=== PATIENT | male | born 1930 | race Caucasian/White ===

== ENCOUNTER 2017-04-07 09:49 | Inpatient (IN) ==
[2017-04-07] MEDS ORDERED: NEUPOGEN SUBQ SCH (11:00)
[2017-04-07] MEDS ORDERED: ZOFRAN PO PRN (11:14)
[2017-04-07] MEDS ORDERED: VANCOMYCIN IV PER PHARMACY MISC SCH (11:15)
[2017-04-07] MEDS ORDERED: MAXIPIME 2 GM/NS 2 GM/100 ML IVPB IV SCH (12:00)
[2017-04-07] MEDS: ASPIRIN PO SCH (13:58)
[2017-04-07] MEDS: PRILOSEC PO SCH (13:58)
[2017-04-07] MEDS: COLACE PO SCH ×2 (13:58→21:08)
[2017-04-07] MEDS: WELLBUTRIN SR PO SCH ×2 (13:58→21:08)
[2017-04-07] MEDS: FOLIC ACID PO SCH ×2 (13:59→21:08)
[2017-04-07] MEDS: NS 1,000 ML IV SCH (13:59)
[2017-04-07] MEDS: HYDROCODONE/APAP 7.5-325/15 ML PO PRN ×2 (14:09→21:07)
--- NOTE | 2017-04-07 14:12 | HISTORY AND PHYSICAL ---
HISTORY OF PRESENT ILLNESS: This is an 86-year-old, who recently got chemotherapy and his mouth is very sore from mucositis. Left leg very irritated which looks like a diffuse cellulitis irritation. PAST MEDICAL HISTORY: CLL with lymphomatous transformation and started chemotherapy; had a course last week. He has had a very stormy course with his chemotherapy by his report. Eventually, chemotherapy was limited by thrombocytopenia. He had very intense cellulitis of the right leg which required skin grafting x2. Over the last 2 years, he has done fairly well. Last year he had a fall and suffered compression fracture L1 and treated conservatively with Miacalcin, ambulation, lumbar brace. Reports that he had fallen twice more and was brought to the hospital. At one point, he struck his head and knocked unconscious. Admitted last here 09/08/2015. He had recovered and was doing better and was started back on some chemotherapy. He presents now with mucositis cellulitis of the left leg and neutropenia. PAST MEDICAL HISTORY: 1. Carotid artery disease undergoing carotid endarterectomy. 2. Atrial fibrillation. Not a candidate for anticoagulant therapy secondary to recurrent thrombocytopenia. 3. Hypertension. 4. Benign prostatic hypertrophy. 5. Prior cerebrovascular accident. 6. Anxiety. 7. Reflux. 8. Hyperlipidemia. 9. Prior hospitalization for pneumonia. 10. Had myelodysplastic syndrome with lymphomatous transformation. ALLERGIES: Allergic to ibuprofen. FAMILY HISTORY: Positive for colon cancer and apparent history of hypertension and diabetes mellitus in the family. Chronic obstructive pulmonary disease in parents. SOCIAL HISTORY: He is retired. Lives with elderly , who is suffering from dementia. Nonsmoker. Does not use ethanol. REVIEW OF SYSTEMS: General: States that he has been eating okay up until his mouth started getting sore. HEENT: Mainly his mouth hurting him. It hurts to swallow, hurts on the roof of his mouth. Respiratory: Unremarkable. Cardiovascular: No chest pain or tachy palpitation. GI/: His bowels have been moving okay. No blood in the stool by his report. Endocrinologic/hematologic: No significant history. Neurologic/musculoskeletal: No focal complaints. Left leg very sore. PHYSICAL EXAMINATION: VITAL SIGNS: Afebrile with temp 98.5 degrees, pulse 100, respirations 18, blood pressure 120/63, O2 saturation 95%. Weight 173 pounds. Height 5 feet 9 inches. O2 saturation 95%. LUNGS: Clear in all lung ash. CARDIOVASCULAR EXAM: Regular rhythm and rate without murmurs. OROPHARYNX: He has petechiae and erythema on the hard and soft palate. The posterior pharynx, lips and gingiva look to be okay. His tongue is unremarkable. NECK: No cervical adenopathy. EXTREMITIES: The left leg has circumferential punctate erythema on the anterior skin, very tender and sore. Right leg unremarkable. This right leg has had skin graft in the past. Apparently had cellulitis with this a couple of years ago in the right leg. ASSESSMENT AND PLAN: 1. Mucositis neutropenia. We will put on antibiotics and we will get Magic mouthwash and try swish and swallow. Treated for his cellulitis to cover gram-positive organisms, but also cover gram-negative for the same neutropenia. 2. 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 3. Peripheral vascular disease. Has undergone carotid endarterectomy. 4. History of atrial fibrillation, not a candidate for anticoagulant. Appears to have controlled rate. 5. Recurrent thrombocytopenia, aware. 6. History of hypertension. 7. Benign prostatic hypertrophy. 8. Prior cerebrovascular accident. 9. He has had gastroesophageal reflux. cc: Cooper Espinoza MD
[2017-04-07] MEDS ORDERED: VANCOMYCIN 2,000 MG in NS 500 ML IV ONE (14:30)
[2017-04-07] MEDS: MERREM 1 GM in NS 50 ML IV SCH ×2 (14:40→21:08)
--- NOTE | 2017-04-07 14:46 | CONSULTATION ---
DATE OF CONSULTATION: 04/07/2017 CONCLUSION: The patient is admitted to the hospital with cellulitis of the left leg. He has pancytopenia. The patient also has oral mucositis. I looked in the computer for some prior blood cultures and 1 drawn a day ago is growing gram positive cocci. The patient has oral mucositis. RECOMMENDATIONS: I have discontinued cefepime and have placed the patient on meropenem and I agree with adding vancomycin. I have also ordered that a culture be taken from the patient's left leg. For the patient's oral mucositis, I have ordered Magic mouthwash 4 times a day. There was only 1 blood culture growing gram positive cocci that I found. I think it would be reasonable to wait before taking out the patient's Port-A-Cath to see exactly what type a Staph it is. If it is it if it is only a coag-negative Staph and it is only in 1 blood culture, I still would treated with vancomycin which the patient is receiving but I would not take out the Port-A- Cath at this time. I have ordered Magic Mouthwash. DISCUSSION: The patient is admitted to the hospital with left leg infection. It is erythematous and swollen. He did not injure it. Patient also has pancytopenia. He says that in the past 3 days he has not passed any stool. He does not have an appetite. He also says that his mouth has been very sore. PAST MEDICAL HISTORY/REVIEW OF SYSTEMS: Eyes and Ears: Denies difficulty hearing or seeing. Neck: No meningismus. Respiratory: No cough or shortness of breath. Cardiac: No chest pain or palpitations. GI: No nausea, vomiting, or vomiting. As mentioned above, patient has not passed a stool in 3 days. Genitourinary: No dysuria or flank pain. Endocrine : Patient is not diabetic and he does not have any thyroid disease. Bones, joints, muscles: He is not complaining of any swelling of his joints or myalgias. Neurologic: No seizures. No motor or sensory loss. Integument: No rash PREVIOUS HOSPITALIZATIONS AND OPERATIONS: He has had bilateral carpal tunnel surgery. He has had knee surgery, carotid end arterectomy, laminectomy. Hernia repair x3, appendectomy, cholecystectomy. Placement of a Port-A-Cath. MEDICAL DISEASES: Positive for hypertension, stroke, and lymphoma. Hyperlipidemia and gastroesophageal reflux disease. Infectious Disease History: Negative for pneumonia and UTI. FAMILY HISTORY: Positive for hypertension and cancer. [place]IAL HISTORY[place] . He does not drink alcoholic beverages, smoke cigarettes, or abuse drugs. There are no pets at home. ALLERGIES: Advil. HOME MEDICINES: Include Lasix, folic acid, Avodart, Colace, Wellbutrin, aspirin , Lipitor, Flomax, omeprazole, metoprolol, hydrocodone, and Guar gum. PHYSICAL EXAMINATION: Vital Signs: Temperature is 98.5 degrees, pulse 102, respirations 18 ,blood pressure 120/63. Generally: The patient is an ill-appearing a elderly male. He is in no acute distress at this time. HEENT: Head, eyes, ears, nose and throat: He can hear my spoken words and see near objects. The oral mucosa was erythematous. I did not see any ulcers or white patches at this time. Neck: No meningismus. Thorax: No increased AP diameter to the chest. Lungs: Clear to auscultation. Cardiovascular: Heart rate is regular. Abdomen : Soft and nontender. Extremities: The left leg is swollen and it is erythematous. There are some sloughs of the superficial layer of skin. Neurologic: Patient is alert. He can move his extremities. There is no tremor. His sensation was intact to touch. His memory, as regarding his medical history was decreased. cc: MD ELIAS Fernández
[2017-04-07] MEDS: NON-FORMULARY BULK MED PO SCH ×2 (16:17→21:07)
[2017-04-07] MEDS: GRANIX SUBQ SCH (16:18)
[2017-04-08] MEDS: HYDROCODONE/APAP 7.5-325/15 ML PO PRN ×3 (03:05→22:45)
[2017-04-08] MEDS: PRILOSEC PO SCH (06:06)
[2017-04-08] MEDS: MERREM 1 GM in NS 50 ML IV SCH ×3 (06:06→22:49)
[2017-04-08] MEDS: NS 1,000 ML IV SCH ×2 (06:06→22:49)
[2017-04-08 07:26] LABS: EOS# 0.03 X1000 (0.0-0.7); EOS% 2.8 % (0.0-10.0); HEMATOCRIT 24.2 % (42.0-52.0); HEMOGLOBIN 7.9 g/dL (14.0-18.0); IMM GRAN# 0.08 X1000 (0.0-0.04); IMM GRAN% 7.5 % (0.0-0.5); LYMPH# 0.16 X1000 (1.2-3.4); MANUAL DIFF NEEDED? YES; MCH 30.6 PG (27-31); MCHC 32.6 g/dL (33-37); MCV 93.8 FL (81-99); MONO# 0.18 X1000 (0.11-0.59); MONO% 16.8 % (1.7-9.3); MPV 11.1 FL (7.4-10.4); NEUT% 57.9 % (42.2-75.2); RBC 2.58 XMIL (4.7-6.1)
[2017-04-08 07:29] LABS: PLT 28 X1000 (130-400)
[2017-04-08 07:46] LABS: AGAP 8; ALBUMIN 2.8 g/dL (3.5-5.0); ALKALINE PHOSPHATASE 75 U/L (32-122); BANDS 8 % (0-1); BUN 22 mg/dL (8-22); CHLORIDE 95 mmol/L (98-107); COSMO 269; EOS 4 % (1-10); GOT 16 U/L (10-34); GPT 31 U/L (10-44); HYPOCHROM 2+; LYMPHS 12 % (21-51); MONO 8 % (1-9); POTASSIUM 3.8 mmol/L (3.5-5.1); SODIUM 132 mmol/L (136-145); TCO2 29 mmol/L (25-35); TOTAL BILIRUBIN 1.23 mg/dL (0.20-1.00); TOTAL PROTEIN 4.6 g/dL (6.3-8.3)
[2017-04-08] MEDS: TOPROL XL PO SCH (08:39)
[2017-04-08] MEDS: ASPIRIN PO SCH (08:39)
[2017-04-08] MEDS: FOLIC ACID PO SCH ×2 (08:39→22:48)
[2017-04-08] MEDS: WELLBUTRIN SR PO SCH ×2 (08:39→22:48)
[2017-04-08] MEDS: COLACE PO SCH ×2 (08:40→22:49)
[2017-04-08] MEDS: GRANIX SUBQ SCH (08:40)
[2017-04-08] MEDS: NON-FORMULARY BULK MED PO SCH ×4 (08:40→22:49)
[2017-04-08] MEDS ORDERED: CALCIUM GLUCONATE 4.65 MEQ in NS 50 ML IV ONE (09:00)
--- NOTE | 2017-04-08 13:02 | PROGRESS NOTE ---
DATE: 04/08/2017 CHIEF COMPLAINT: "I am doing terrible." HISTORY OF PRESENT ILLNESS: Mr. Zambrano has had pain overnight related to his mucositis and left lower extremity cellulitis. He is unable to swallow much of anything at this time. Pain is well controlled when he takes his pain medications. PHYSICAL EXAMINATION: Vital Signs: Temperature 97.5 degrees, pulse 101, respiratory rate 22, blood pressure 102/52, O2 saturation is now at 92% on 3 L but dropped down to 79% on room air overnight. General: This is a chronically ill-appearing, elderly, frail, man in moderate distress secondary to pain. Eyes: Sclerae anicteric. Cardiovascular: Regular rate and rhythm. Normal S1, S2. No murmurs, rubs, or gallops. Pulmonary: Lungs clear to auscultation bilaterally without wheezes, rales or rhonchi. GI: Abdomen is soft, nontender, nondistended with normoactive bowel sounds. Extremities: No clubbing or cyanosis. Right lower extremity with 1+ edema. Left lower extremity with ulceration and desquamation and erythema up to the upper 2/3 of the tibia. Neuro: Gait not assessed. The patient is unable to stand secondary to pain. LABORATORY DATA: White count pending but ANC is 620. Hemoglobin 7.9, platelet count 28,000. Calcium 7.0. Total bilirubin 1.23. ASSESSMENT AND PLAN: 1. Angioimmunoblastic lymphoma, stage 3b, status post cycle 1, day 36 of Folotyn 03/31/2017. His treatment has been held since that time due to pancytopenia and declining performance status. Treatment will continue to be held at this time. 2. Mucositis: Continue to use Magic Mouthwash and pain medicine as needed. Patient is on folic acid. 3. Hypocalcemia: I will give him IV calcium today for repletion. Recheck tomorrow. 4. Anemia: His hemoglobin is low at 7.9 today. I will check iron stores, B12, and folic acid, and replete as indicated. 5. Thrombocytopenia related to his underlying disease as well as his treatment. Continue neutropenic precautions. Monitor for fever. Transfused 1. Bleeding is notable. Continue to monitor. 6. Left leg cellulitis: He continues on antibiotics. He had 1 positive blood culture that is being monitored. ID is on board. We will continue to follow along with you and leave further recommendations as indicated. cc: Maria Alejandra Wade MD
--- NOTE | 2017-04-08 14:09 | PROGRESS NOTE ---
DATE: 04/08/2017 SUBJECTIVE: Mr. Zambrano feels about the same. He was able to get a little bit of chicken broth down. Still hurts in his mouth. His left leg is still very uncomfortable. Breathing comfortably. OBJECTIVE: Temperature 97.5 degrees, pulse 100, respirations 22, blood pressure 102/52. LUNGS: Clear to auscultation. CARDIOVASCULAR: Regular rhythm and rate, without murmur or S3. ABDOMEN: Soft. SKIN: Warm and dry. LABORATORY: Hematocrit is 24, platelet count 28,000, white blood cell count 2580. ASSESSMENT AND PLAN: 1. Patient admitted to the hospital with cellulitis left leg, pancytopenia, oral mucositis. Culture data pending at the present time. Patient put on meropenem and adding vancomycin. Discontinued cefepime and placed the patient on meropenem and vancomycin, per Dr. Ochoa. One blood culture grew Gram-positive cocci. Wanted to wait before taking out the Port-A-Cath to see exactly what type of staphylococcus it was. If it is only coagulase-negative staphylococcus and it is only 1 blood culture, continue treatment. 2. Angioimmunoblastic lymphoma, stage IIIB, status post cycle 1 day 36. Folotyn started on 03/31/2017. His treatment has been held since that time because of pancytopenia and declining performance. 3. Hypocalcemia, given some IV calcium for repletion. 4. Thrombocytopenia related to underlying disease. Continue neutropenic precautions. Monitor. Transfuse per Dr. Wade. 3. Left leg cellulitis. Continue topical care. cc: Cooper Espinoza MD
[2017-04-08] MEDS: VANCOMYCIN 1,250 MG in NS 250 ML IV SCH (14:45)
[2017-04-09] MEDS: MERREM 1 GM in NS 50 ML IV SCH ×3 (07:13→21:05)
[2017-04-09] MEDS: PRILOSEC PO SCH (07:14)
[2017-04-09 07:49] LABS: AGAP 5; ALBUMIN 2.7 g/dL (3.5-5.0); ALKALINE PHOSPHATASE 81 U/L (32-122); BUN 16 mg/dL (8-22); CALCIUM 7.5 mg/dL (8.8-10.2); CHLORIDE 100 mmol/L (98-107); COSMO 272; GOT 12 U/L (10-34); GPT 27 U/L (10-44); POTASSIUM 4.1 mmol/L (3.5-5.1); SODIUM 135 mmol/L (136-145); TCO2 30 mmol/L (25-35); TOTAL PROTEIN 4.5 g/dL (6.3-8.3)
[2017-04-09 08:04] LABS: BASO% 0.6 % (0.0-0.8); EOS# 0.05 X1000 (0.0-0.7); EOS% 3.1 % (0.0-10.0); HEMATOCRIT 26.8 % (42.0-52.0); HEMOGLOBIN 8.4 g/dL (14.0-18.0); LYMPH# 0.21 X1000 (1.2-3.4); LYMPH% 13.2 % (20.5-51.1); MANUAL DIFF NEEDED? YES; MCH 30.1 PG (27-31); MCHC 31.3 g/dL (33-37); MCV 96.1 FL (81-99); MONO# 0.37 X1000 (0.11-0.59); MONO% 23.3 % (1.7-9.3); MPV 11.8 FL (7.4-10.4); NEUT% 59.8 % (42.2-75.2); PLT 18 X1000 (130-400); RBC 2.79 XMIL (4.7-6.1)
[2017-04-09 08:32] LABS: FERRITIN 2918 ng/mL (30-400)
[2017-04-09 08:51] LABS: BANDS 14 % (0-1); LYMPHS 12 % (21-51); MONO 18 % (1-9); NRBC 1 % (0-0)
[2017-04-09 08:52] LABS: HYPOCHROM 2+
[2017-04-09] MEDS: NON-FORMULARY BULK MED PO SCH ×4 (09:58→21:05)
[2017-04-09] MEDS: HYDROCODONE/APAP 7.5-325/15 ML PO PRN ×2 (09:59→14:54)
[2017-04-09] MEDS: TOPROL XL PO SCH (10:00)
[2017-04-09] MEDS: WELLBUTRIN SR PO SCH ×2 (10:00→21:05)
[2017-04-09] MEDS: FOLIC ACID PO SCH ×2 (10:00→21:05)
[2017-04-09] MEDS: ASPIRIN PO SCH (10:00)
[2017-04-09] MEDS: COLACE PO SCH ×2 (10:00→21:05)
[2017-04-09] MEDS: GRANIX SUBQ SCH (13:05)
[2017-04-09] MEDS: VANCOMYCIN 1,250 MG in NS 250 ML IV SCH (14:44)
[2017-04-09] MEDS: NS 1,000 ML IV SCH (14:46)
--- NOTE | 2017-04-09 15:00 | PROGRESS NOTE ---
DATE: 04/09/2017 SUBJECTIVE: Mr. Calabrese mouth still hurts, but better. He is able to get a little bit of liquids down. I think he is feeling better overall. OBJECTIVE: Vital signs: Remains afebrile, temperature 97.8 degrees, pulse 89, respirations 17, blood pressure 134/64. HEENT: Pupils are equal, round. Lungs: Are clear in all lung ash. Cardiovascular: Regular rhythm and rate without murmur or S3. Abdomen: Soft. Skin: Is warm and dry. : Urine output is 965 mL. LABORATORY: White count 1590, hematocrit has come up to 26, platelet count 18,000. Chemistries reviewed, sodium 135, potassium 4.1, chloride 100, bicarb 30, BUN 16, creatinine 0.7, ferritin 2918, vitamin B12 greater than 1000. Folate was 13.2. ASSESSMENT AND PLAN: 1. The patient admitted to the hospital with cellulitis left leg, pancytopenia, oral mucositis. Culture data pending still. Patient on meropenem and vancomycin. We discontinued Cefepime. One blood culture grew gram-positive cocci. I want to wait before taking out the Port-A-Cath and make a decision on what type of Staphylococcus it was. Dr. Ochoa is following. Cultures, gram positive cocci in 1 of the cultures, the other with no growth. 2. Mucositis better. Continue Magic mouthwash. 3. Angioimmunoblastic lymphoma, stage IIIB, status post 1 cycle of Folotyn started 03/31/2017. 4. Hypocalcemia. Give him some IV calcium per Oncology. We may get some more today. 5. Thrombocytopenia. Continue to follow. No sign of bleeding. We will lead Dr. Wade decide on whether he needs platelets. 6. Left leg cellulitis. Continue topical care. He is doing better. cc: Cooper Espinoza MD
[2017-04-09] MEDS: ZOFRAN IV PRN ×2 (17:33→21:04)
[2017-04-10] MEDS: MERREM 1 GM in NS 50 ML IV SCH ×3 (05:17→21:35)
[2017-04-10] MEDS: NS 1,000 ML IV SCH ×2 (05:17→10:44)
[2017-04-10] MEDS: ZOFRAN IV PRN (05:23)
[2017-04-10] MEDS: HYDROCODONE/APAP 7.5-325/15 ML PO PRN ×2 (05:23→21:07)
[2017-04-10 07:09] LABS: AGAP 9; ALBUMIN 2.5 g/dL (3.5-5.0); ALKALINE PHOSPHATASE 85 U/L (32-122); BUN 17 mg/dL (8-22); CALCIUM 7.8 mg/dL (8.8-10.2); CHLORIDE 102 mmol/L (98-107); COSMO 281; GOT 9 U/L (10-34); GPT 22 U/L (10-44); POTASSIUM 4.3 mmol/L (3.5-5.1); SODIUM 139 mmol/L (136-145); TCO2 28 mmol/L (25-35); TOTAL BILIRUBIN 0.92 mg/dL (0.20-1.00); TOTAL PROTEIN 4.3 g/dL (6.3-8.3)
[2017-04-10 07:20] LABS: BASO% 0.2 % (0.0-0.8); HEMATOCRIT 26.3 % (42.0-52.0); HEMOGLOBIN 8.2 g/dL (14.0-18.0); IMM GRAN# 0.07 X1000 (0.0-0.04); IMM GRAN% 1.6 % (0.0-0.5); LYMPH# 0.32 X1000 (1.2-3.4); LYMPH% 7.2 % (20.5-51.1); MANUAL DIFF NEEDED? YES; MCH 30.6 PG (27-31); MCHC 31.2 g/dL (33-37); MCV 98.1 FL (81-99); MONO# 0.95 X1000 (0.11-0.59); MONO% 21.3 % (1.7-9.3); MPV 10.3 FL (7.4-10.4); NEUT% 69.7 % (42.2-75.2); PLT 17 X1000 (130-400); RBC 2.68 XMIL (4.7-6.1)
[2017-04-10] MEDS: PRILOSEC PO SCH (07:36)
[2017-04-10 07:52] LABS: BANDS 8 % (0-1); HYPOCHROM 2+; LYMPHS 12 % (21-51); MONO 24 % (1-9)
[2017-04-10] MEDS: COLACE PO SCH ×2 (10:44→21:34)
[2017-04-10] MEDS: WELLBUTRIN SR PO SCH ×2 (10:44→21:35)
[2017-04-10] MEDS: ASPIRIN PO SCH (10:44)
[2017-04-10] MEDS: GRANIX SUBQ SCH (10:45)
[2017-04-10] MEDS: NON-FORMULARY BULK MED PO SCH ×4 (10:45→21:35)
[2017-04-10] MEDS: FOLIC ACID PO SCH ×2 (10:45→21:35)
[2017-04-10] MEDS: TOPROL XL PO SCH (10:45)
[2017-04-10] MEDS: VANCOMYCIN 1,500 MG in NS 250 ML IV SCH (16:31)
--- NOTE | 2017-04-10 17:26 | PROGRESS NOTE ---
DATE: 04/10/2017 SUBJECTIVE: He is feeling about the same. His mouth is sore. Left leg is hurting, but he is eating a little better. OBJECTIVE: Vital signs: Temperature 98.5 degrees, pulse 85, respirations 22, blood pressure 123/58. Respiratory: Lungs are clear in all lung ash. Cardiovascular: Regular rhythm and rate without murmur or S3. Abdomen: Soft. Skin: Is warm and dry. LABORATORY: His laboratory has grown out I believe Staph epidermidis sensitive to oxacillin. ASSESSMENT AND PLAN: 1. Plan is to stop his vancomycin. We will leave his port in and try and treat this with antibiotics and continue Cefepime. Stop the vancomycin. He has shown clinical improvement. 2. Mucositis is slowly getting better. Continue Magic mouthwash. 3. Angioimmunoblastic lymphoma, stage IIIB. He is aware. Status post chemotherapy with pancytopenia. 4. Hypocalcemia. 5. Thrombocytopenia. Laboratory today, blood counts have improved white count is up to 4450, hematocrit 26, platelet count 17,000. So still low. Chemistries unremarkable. Continue present regimen. He will probably need a total of 2 weeks of IV antibiotic. He is getting Granix and his counts are improving, platelet count still low. cc: Cooper Espinoza MD
--- NOTE | 2017-04-10 17:54 | PROGRESS NOTE ---
DATE: 04/10/2017 PRESENT ILLNESS: The patient has pneumonia, left leg cellulitis, bacteremia and oral mucositis. He was pancytopenic, but his white count has recovered. Unfortunately his platelets are still quite low. MEDICATIONS: The patient is on a combination of vancomycin and meropenem. PHYSICAL EXAMINATION: Vital Signs: Temperature is 98.5 degrees, pulse 79, respirations 19, blood pressure 102/51. General: This is an ill-appearing, elderly male. He is dyspneic at rest. He has audible expiratory wheezes. ENT: The patient's oral mucosa was erythematous. I did not see any ulcers or white patches. Chest: The patient has a Port-A-Cath in place. The site is not swollen or erythematous. Lungs: Expiratory wheezes. Cardiovascular: Regular heart rate. Abdomen: Soft and nontender. LABORATORY AND X-RAY STUDIES: One blood culture is growing oxacillin sensitive Staph epidermidis. The other blood culture is growing a gram-positive coccus which is yet to be identified. The patient's leg is also growing a gram-positive coccus which has not yet been identified. Patient's chest x-ray shows a right upper lobe pneumonia. CBC shows a white count of 4450, hemoglobin 8.2 and platelet count 17,000. The absolute neutrophil count is 3100, creatinine 0.7, GFR is greater than 60. Liver function studies are normal. ASSESSMENT AND PLAN: 1. The patient has a bacteremia with coagulase-negative staph. It looks like both blood cultures are positive; therefore, I think it represents a true bacteremia most likely originating from his Port-A-Cath. I think it is worth a try in somebody that has a Staph epidermidis bacteremia to try to save the Port-A-Cath with antibiotic therapy instead of taking it out. Also, I think taking out the Port-A-Cath would be quite difficult in view of the patient's very low platelet count. The patient does have pneumonia. I plan to continue with his current antibiotics. I am going to repeat the chest x-ray. As far as the patient's mucositis goes, I am going to continue the Magic Mouthwash and I am sure his white count recovering will also help clear up the mucositis. Patient has a pneumonia. Again I think I will want to keep the vancomycin and meropenem both going until it clears up. I plan to get another chest x-ray on him. The patient's left leg looks much better. Most of the erythema is gone and most of the swelling is gone. Again, I will continue his current antibiotics. 2. Comorbidities: He has a lymphoma. He has just had chemotherapy. He has gastroesophageal reflux disease. cc: Bon Ochoa MD
[2017-04-10] MEDS ORDERED: NS 500 ML IV SCH (18:42)
--- NOTE | 2017-04-10 18:58 | Diag Imaging Result Doc PS360 ---
EXAM: CHEST-1 VIEW HISTORY: pneumonia TECHNIQUE: Upright AP COMPARISON: 04/05/2017 FINDINGS: No change in the left subclavian portacatheter. No pneumothorax. There are infiltrates throughout the right lung with right lung atelectasis. There is also a small to moderate-sized right-sided pleural effusion. The heart isn't enlarged. Left lung remains clear. IMPRESSION: Interval development of right lung pneumonia and atelectasis with a right-sided effusion.. Electronically signed by Shane Peres 04/10/2017 6:55 PM
[2017-04-10] MEDS ORDERED: LEVOPHED 8 MG in D5 1/2 NS 250 ML IV SCH (23:22)
[2017-04-10] MEDS ORDERED: DIPRIVAN 1% 1,000 MG/100 ML BOTTLE IV SCH (23:22)
[2017-04-10 23:43] LABS: ALLEN TEST YES; BE -14.5 mmoll (-3.0-3.0); BLOOD TYPE ARTERIAL; DRAW SITE R RADIAL; O2(CT) 12.7 mL/dL (15.0-23.0); PO2(98.6) 218 mmHg (60-100); SAMPLE BLOOD; SAO2 99.5 % (95.0-100.0)
[2017-04-10 23:45] LABS: MODALITY AMBU BAG; PCO2(98.6) 69 mmHg (35-45); pH(98.6) 6.99 (7.35-7.45)
[2017-04-11 01:18] LABS: URINE CULTURE NEEDED? NO; URINE SOURCE CATH
[2017-04-11 01:20] LABS: BILIRUBIN URINE NEGATIVE (NEGATIVE); BLOOD URINE NEGATIVE (NEGATIVE); COLOR ORANGE; GLUCOSE URINE TRACE mg/dL (NEGATIVE); LEUKOCYTES URINE NEGATIVE (NEGATIVE); NITRITE URINE NEGATIVE (NEGATIVE); PROTEIN URINE 100 mg/dL (NEGATIVE); SP GRAVITY URINE 1.022; TURBIDITY URINE HAZY (CLEAR); URINE MICRO REVIEW NEEDED? YES; UROBILINOGEN URINE 4 mg/dL (NORMAL)
[2017-04-11 01:28] LABS: UR EPITHELIAL CELLS >10 /HPF (<10); URINE BACTERIA NEGATIVE /HPF; URINE RBC <10 /HPF (<10); URINE WBC <10 /HPF (<10)
[2017-04-11 01:38] LABS: URINE CASTS GRANULAR PRESENT
[2017-04-11] MEDS: NS 1,000 ML IV SCH ×2 (02:20→09:58)
[2017-04-11 04:46] LABS: ALLEN TEST YES; BE 5.2 mmoll (-3.0-3.0); BLOOD TYPE ARTERIAL; DRAW SITE R RADIAL; METHB 1.2 % (0.0-1.5); O2(CT) 9.2 mL/dL (15.0-23.0); PCO2(98.6) 36 mmHg (35-45); PO2(98.6) 206 mmHg (60-100); SAMPLE BLOOD; SAO2 98.6 % (95.0-100.0); SRATE 15 BPM; THB 6.4 g/dL (11.5-17.4); TVOL 550 mL; pH(98.6) 7.51 (7.35-7.45)
[2017-04-11 04:47] LABS: MODALITY VENTILATOR
[2017-04-11] MEDS: MERREM 1 GM in NS 50 ML IV SCH ×3 (05:29→21:55)
--- NOTE | 2017-04-11 05:47 | EKG Report ---
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 Rate : 117 BPM Atrial Rate : 117 BPM P-R Int : 150 ms QRS Dur : 126 ms QT Int : 342 ms P-R-T Axes : 057 -77 078 degrees QTc Int : 477 ms Sinus tachycardia. with premature atrial complexes. Left axis deviation Right bundle branch block Abnormal ECG When compared with ECG of 03-SEP-2013 15:16, Vent. rate has increased BY [address] and T wave abnormality high-lateral leads i and AVL Nonspecific ST abnormality precordial leads Clinical Correlation advised Confirmed by Raj Cramer DO ([id number]) on 04/15/2017 12:08:05 PM
[2017-04-11 06:00] LABS: AGAP 10; ALBUMIN 2.7 g/dL (3.5-5.0); ALKALINE PHOSPHATASE 146 U/L (32-122); BUN 24 mg/dL (8-22); CALCIUM 7.8 mg/dL (8.8-10.2); CHLORIDE 106 mmol/L (98-107); COSMO 292; GOT 69 U/L (10-34); GPT 63 U/L (10-44); POTASSIUM 4.4 mmol/L (3.5-5.1); SODIUM 143 mmol/L (136-145); TCO2 27 mmol/L (25-35); TOTAL BILIRUBIN 0.97 mg/dL (0.20-1.00); TOTAL PROTEIN 4.5 g/dL (6.3-8.3)
--- NOTE | 2017-04-11 07:16 | Diag Imaging Result Doc PS360 ---
EXAM: CHEST-PORTABLE HISTORY: ETT placement TECHNIQUE: Erect AP portable at 0540 COMMENT: There is a loculated pleural effusion on the right. There is cardiomegaly. The inspiration is less optimal than on 04/11/2017 at 0050. Compared to the previous study of 04/10/2017 at zero 6:15, the lingula is more opacified. IMPRESSION: Right pleural effusion. Pulmonary edema and/or pneumonia slightly worse than on 04/10/2017. Electronically signed by Preet Canseco 04/11/2017 7:13 AM
--- NOTE | 2017-04-11 07:22 | Diag Imaging Result Doc PS360 ---
EXAM: CHEST/ABD TUBE PLACEMENT HISTORY: NG tube placement TECHNIQUE: AP semierect upright portable for NG tube placement at 0050 COMMENT: There is an NG tube with its tip in the stomach. There is an endotracheal tube with its tip approximately 2 cm above the devyn. There is a right pleural effusion. IMPRESSION: NG tube in the stomach. Electronically signed by Preet Canseco 04/11/2017 7:20 AM
[2017-04-11] MEDS: TYLENOL PO PRN ×2 (07:31→22:30)
[2017-04-11] MEDS: PRILOSEC PO SCH (08:01)
[2017-04-11 08:06] LABS: HEMATOCRIT 26.2 % (42.0-52.0); HEMOGLOBIN 8.2 g/dL (14.0-18.0); MCH 31.5 PG (27-31); MCHC 31.3 g/dL (33-37); MCV 100.8 FL (81-99); MPV 10.5 FL (7.4-10.4); RBC 2.6 XMIL (4.7-6.1)
[2017-04-11] MEDS: ASPIRIN PO SCH (08:42)
[2017-04-11] MEDS: COLACE PO SCH ×2 (08:42→21:05)
[2017-04-11] MEDS: TOPROL XL PO SCH (08:42)
[2017-04-11] MEDS: NON-FORMULARY BULK MED PO SCH ×4 (08:43→21:05)
[2017-04-11] MEDS: FOLIC ACID PO SCH ×2 (08:43→21:05)
[2017-04-11] MEDS: WELLBUTRIN SR PO SCH ×2 (08:43→21:06)
[2017-04-11] MEDS: GRANIX SUBQ SCH (08:43)
--- NOTE | 2017-04-11 10:31 | CONSULTATION ---
DATE OF CONSULTATION: 04/11/2017 REFERRING PHYSICIAN: Dr. Villarreal. CHIEF COMPLAINT: Cellulitis. HISTORY OF PRESENT ILLNESS: This is an 86-year-old male with a past medical history of CAD, atrial fibrillation, hypertension, BPH, CVA, anxiety, reflux, hyperlipidemia, and pneumonia that was admitted to the hospital with cellulitis of the left leg. He also is undergoing treatment for CLL with lymphomatous transformation and started on chemotherapy. Apparently during his hospital stay, the patient had bradycardia and coded. He was intubated and placed in the ICU. Pulmonary has been consulted for ventilator management. REVIEW OF SYSTEMS: Unable to obtain. PAST MEDICAL HISTORY: As mentioned in the HPI, otherwise noncontributory. ALLERGIES: Ibuprofen. FAMILY HISTORY: Notable for colon cancer, hypertension, diabetes, COPD. SOCIAL HISTORY: The patient lives at home with his . No documented history of tobacco, alcohol, or illicit drugs. ACTIVE MEDICATIONS: Tylenol, aspirin, Wellbutrin, Colace, folic acid, Merrem, Toprol, vancomycin, Levophed, Prilosec, Zofran, propofol. PHYSICAL EXAMINATION: Vital Signs: Temperature 101.3 degrees, heart rate 105, respiratory rate 24, blood pressure 139/72, oxygen saturation 98%. General: Lying on a stretcher, intubated. HEENT: Normocephalic and atraumatic. Cardiovascular: S1 and S2 present. Chest: Reduced entry. Abdomen: Bowel sounds present. Neurologic: Sedated. LABS/INVESTIGATIONS: WBC 14.44, RBCs 2.6, hemoglobin 8.2, hematocrit 26.2, platelet count 61,000. Sodium 143, potassium 4.4, chloride 106, CO2 27, anion gap 10, BUN 24, creatinine 1, glucose 141. Blood gas shows a pH of 7.51, pCO2 of 36, PO2 of 206, HC03 of 29, base excess 5.2, saturated oxygen of 99. Chest x-ray performed on 04/11/2017 shows right pleural effusion , pulmonary edema and/or pneumonia, slightly worse than on 04/10/2017. ASSESSMENT AND PLAN: This is an 86-year-old male who was admitted to the hospital with cellulitis, undergoing chemotherapy for chronic lymphocytic leukemia. He coded on the floor and was moved to the intensive care unit, intubated and sedated. Pulmonary was consulted for ventilator management. Respiratory failure, CHF, pneumonia is possible. Shock improving. Continue antibiotics, pressors to maintain appropriate MAP, as well as gastrointestinal prophylaxis. Hold anticoagulation secondary to anemia and low platelets. Further recommendations pending diagnostic studies. Thank you for the courtesy of this consult. Dictated by STEVE Russell for Pennie Pérez MD cc: STEVE Russell MD [facility]
--- NOTE | 2017-04-11 12:33 | PROGRESS NOTE ---
DATE: 04/11/2017 Today Mr. Zambrano continues to be pretty much the same. Not responsive. OBJECTIVE: Vitals: Blood pressure is 128/65, pulse is 104, respiration is 17, temperature 99.9 degrees. Patient had a temperature of 100 degrees 100.3 this morning. OBJECTIVELY: Mr. Zambrano is an 86-year-old male. He is in bed. He is intubated. Has this tonic deviation of his eyes upward and towards the left.Chest: Air entry is bilaterally reduced. There are no crepitations. Cardiovascular: Regular rate and rhythm. Abdomen: Soft. Extremities: No pedal edema. There are some erythematous changes on the left leg which seems to have improved. HOT TOP LINER: Patient is unresponsive. Only moves lower extremity to extreme painful stimulation, is nonverbal, has spontaneous eye opening. LABORATORY DATA: WBC is 11.44, hemoglobin is 8.2, platelet count is 61,000. Chemistry is reviewed. Unremarkable except for AST of 67, ALT of 63. Patient proBNP is 35,000. A chest x-ray this morning continues to show pneumonia in the left lung. CURRENT MEDICATIONS: Include meropenem 1 g q.8, vancomycin as per pharmacy, Granix 480 micro subcu daily, Folic acid. ASSESSMENT: 1. Sepsis secondary to pneumonia. 2. Staph epidermidis bacteremia. 3. Staph epidermidis leg cellulitis improved. 4. History of angio immunoblastic lymphoma (T-cell lymphoma). 5. Unresponsiveness, unsure the etiology. Patient did have very low platelet count and I am afraid he probably could have bled in the brain and we are not sure. We are going to do a CT scan of the brain and also a CT scan of the chest to follow up on the pneumonia since the patient is spiking a temperature. cc: Adriel Villarreal MD
--- NOTE | 2017-04-11 13:56 | Diag Imaging Result Doc PS360 ---
CT HEAD W/O CONTRAST - 04/11/2017 INDICATION: encephalopathy TECHNIQUE: A CT dose reduction protocol was used. COMPARISON: 09/08/2015 FINDINGS: There is an endotracheal tube and nasogastric tube present. Stable mild atrophy. Stable mild periventricular white matter chronic microvascular disease. Stable small area of encephalomalacia at the right parietal lobe. No intracranial mass or hemorrhage. IMPRESSION: No acute disease. Electronically signed by Clarence Belcher 04/11/2017 1:53 PM
--- NOTE | 2017-04-11 14:04 | Diag Imaging Result Doc PS360 ---
CT THORAX W/CONTRAST - 04/11/2017 INDICATION: pneumonia TECHNIQUE: A CT dose reduction protocol was used. COMPARISON: 08/01/2014 FINDINGS: There is an endotracheal tube and nasogastric tube in good position. There is a left chest port. There is mild cardiomegaly. There is a small right and trace left pleural effusion. There are multifocal multilobar bilateral infiltrates with upper lobe predominance. Airways are grossly clear. There is mild splenomegaly stable from prior. Otherwise upper abdominal images are unremarkable. There are numerous vertebroplasty changes in the thoracolumbar spine. There are several nondisplaced anterior rib fractures mostly on the right side. IMPRESSION: 1. Worsening in the diffuse bilateral infiltrates. Worsening pleural effusions. 2. Probable nondisplaced right-sided rib fractures. Electronically signed by Clarence Belcher 04/11/2017 2:02 PM
[2017-04-11] MEDS: LASIX IV SCH (16:15)
[2017-04-11] MEDS: VANCOMYCIN 1,500 MG in NS 250 ML IV SCH (16:29)
--- NOTE | 2017-04-11 18:46 | PROGRESS NOTE ---
DATE: 04/11/2017 PRESENT ILLNESS: The patient has received chemotherapy for lymphoma. He now has pneumonia and Staph causing a left leg cellulitis and bacteremia. The patient also has oral mucositis. His blood counts are gradually improving. MEDICATIONS: Patient is receiving vancomycin and meropenem. This is the 4th day of treatment with both of these agents. PHYSICAL EXAMINATION: Vital Signs: Temperature is 99.1 degrees, pulse 107, respirations 21, blood pressure 141/70. General: This is a chronically ill-appearing, elderly male. He is in no acute distress. He is intubated and sedated. Lungs: Clear to auscultation. Cardiovascular: Heart rate was regular. Abdomen: Soft and nontender. Extremities: The patient's left leg is dry. There are some small eschars where the patient had open wounds. Neurologic: As mentioned above, the patient is intubated and sedated. LAB AND X-RAY: CBC shows a white count of 14,440, hemoglobin 8.2, and platelet count 61,000. Blood gases show a pH of 7.51, a PO2 of 206, and a pCO2 of 36. Creatinine is 1. GFR is greater than 60. Urinalysis shows no white cells or bacteria. Cultures from the blood and the legs are all growing Staph epidermidis. CT scan shows worse infection and effusion. Head CT shows no acute disease. ASSESSMENT AND PLAN: I plan to continue with current antibiotics for the patient's pneumonia, bacteremia, and left leg cellulitis. The patient's oral mucositis should clear with the return of the normal blood counts. The patient's comorbidities include lymphoma, chemotherapy, and gastroesophageal reflux disease. cc: Bon Ochoa MD
[2017-04-11] MEDS ORDERED: NS 250 ML ONE (22:13)
[2017-04-12 04:21] LABS: BLOOD TYPE ARTERIAL; SAMPLE BLOOD
[2017-04-12 04:26] LABS: ALLEN TEST YES; BE 7.9 mmoll (-3.0-3.0); DRAW SITE R RADIAL; METHB 1.1 % (0.0-1.5); O2(CT) 11.9 mL/dL (15.0-23.0); PCO2(98.6) 42 mmHg (35-45); PO2(98.6) 101 mmHg (60-100); SAO2 98.6 % (95.0-100.0); SRATE 12 BPM; THB 8.7 g/dL (11.5-17.4); TVOL 500 mL; pH(98.6) 7.49 (7.35-7.45)
[2017-04-12 04:27] LABS: MODALITY VENTILATOR
[2017-04-12 05:47] LABS: BASO% 0.2 % (0.0-0.8); EOS# 0.07 X1000 (0.0-0.7); EOS% 0.8 % (0.0-10.0); HEMATOCRIT 28.7 % (42.0-52.0); HEMOGLOBIN 8.8 g/dL (14.0-18.0); IMM GRAN# 0.55 X1000 (0.0-0.04); LYMPH# 0.62 X1000 (1.2-3.4); LYMPH% 6.7 % (20.5-51.1); MANUAL DIFF NEEDED? YES; MCH 29.4 PG (27-31); MCHC 30.7 g/dL (33-37); MONO# 0.94 X1000 (0.11-0.59); MONO% 10.2 % (1.7-9.3); MPV 11.1 FL (7.4-10.4); NEUT% 76.1 % (42.2-75.2); PLT 67 X1000 (130-400); RBC 2.99 XMIL (4.7-6.1)
[2017-04-12] MEDS: MERREM 1 GM in NS 50 ML IV SCH ×3 (06:45→22:03)
[2017-04-12 06:52] LABS: BANDS 8 % (0-1); LYMPHS 2 % (21-51); MONO 10 % (1-9); NRBC 1 % (0-0)
[2017-04-12 07:17] LABS: AGAP 10; BUN 29 mg/dL (8-22); CALCIUM 7.4 mg/dL (8.8-10.2); CHLORIDE 106 mmol/L (98-107); COSMO 293; POTASSIUM 3.7 mmol/L (3.5-5.1); SODIUM 144 mmol/L (136-145); TCO2 28 mmol/L (25-35)
[2017-04-12] MEDS: PRILOSEC PO SCH (07:48)
[2017-04-12] MEDS: WELLBUTRIN SR PO SCH ×2 (10:38→21:16)
[2017-04-12] MEDS: TOPROL XL PO SCH (10:42)
[2017-04-12] MEDS: ASPIRIN PO SCH (10:42)
[2017-04-12] MEDS: FOLIC ACID PO SCH ×2 (10:42→21:17)
[2017-04-12] MEDS: NON-FORMULARY BULK MED PO SCH ×4 (10:42→21:16)
[2017-04-12] MEDS: COLACE PO SCH ×2 (10:42→21:16)
[2017-04-12] MEDS: TYLENOL PO PRN (12:00)
[2017-04-12] MEDS: LASIX IV SCH (14:46)
--- NOTE | 2017-04-12 15:50 | PROGRESS NOTE ---
DATE: 04/12/2017 SUBJECTIVE: Today Mr. Zambrano continues to be intubated. There is a daughter at the bedside today and most of the interval history was provided by her. OBJECTIVE: Vital signs: Blood pressure is 117/75, pulse of 114, temperature is 102.2 degrees. General: Mr. Zambrano is an 86-year-old male. He is in bed, continued to be intubated, mucosa is pink and moist. Anicteric. Acyanotic. Neck: Supple. Chest: Air entry is bilaterally reduced. There are a few bibasilar crepitations. Cardiovascular: Regular rate and rhythm. Abdomen: Soft. Extremities: No pedal edema. 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 He will only open the eyes slightly to very painful stimulation and will also slightly move both lower extremities to painful stimulation. The right lower extremity. Does have the mild erythematous changes in the calf region. LABORATORY DATA: WBC is 9.21, hemoglobin is 8.8, platelet count is 67,000. There is 8% of bands on the peripheral smear. Chemistries reviewed, completely unremarkable. ProBNP is 35,000. REVIEW OF IMAGING STUDIES: A CT scan of the chest was done yesterday which shows worsening in the diffuse bilateral infiltrates and worsening pleural effusions, probably displays right side rib fractures. A CT scan of the head was done which shows no acute disease. CURRENT MEDICATIONS: 1. Tylenol p.r.n. 2. Aspirin 81 mg daily. 3. Folic acid 1 mg p.o. daily. 4. Lasix 60 mg IV q.24. 5. Meropenem 1 g q.8. Today is day 5 on that. 6. Vancomycin as per pharmacy protocol. Today is day 5. LABORATORY: So far, blood culture only showed Staph epidermidis and the urine there was no pathogen isolated. The leg also showed a Staph epidermidis. ASSESSMENT: 1. Sepsis secondary to pneumonia. 2. Staph epidermidis bacteremia. The patient has been on ideal antibiotics, however, today he is a spiking temperature. I would therefore re-culture his blood to make sure that there is not any new bacteria growing. 3.Staph epidermidis left leg cellulitis improved. 4. History of angioimmunoblastic lymphoma (T-cell lymphoma). 5. Altered mental status, likely secondary to sepsis-induced cerebral dysfunction. A CT scan of the brain yesterday ruled out any bleed or any massive organic disorder that could be picked up. Neurology has been consulted and we will be waiting for their further recommendations. 6. Pulmonary edema likely secondary to congestive heart failure. ProBNP is remarkably elevated. Patient is on Lasix. Patient had an echocardiogram in 2013. At that time, ejection fraction was about 60% with mild left ventricular hypertrophy. I suspect patient does have some diastolic dysfunction. However, we cannot rule out a systolic dysfunction. We will repeat the echocardiogram. cc: Adriel Villarreal MD MTDD
[2017-04-12] MEDS: VANCOMYCIN 1,500 MG in NS 250 ML IV SCH (16:39)
--- NOTE | 2017-04-12 18:40 | PROGRESS NOTE ---
DATE: 04/12/2017 PRESENT ILLNESS: The patient is status post chemotherapy for a lymphoma. He now has pneumonia and left leg cellulitis and bacteremia. The patient also has oral mucositis. MEDICATIONS: The patient currently is on vancomycin and meropenem. PHYSICAL EXAMINATION: Vital Signs: Temperature maximum was 102.2 now it is down to 99.2, pulse 114, respirations 24, blood pressure 117/75. General: This is a chronically ill-appearing, elderly male. He is intubated and sedated. Lungs: Clear to auscultation. Cardiovascular: Heart rate is regular. Abdomen: Soft and nontender. Extremities: The patient's left leg is dry. There is no erythema and no purulence. The wounds are healing. Some of them have eschars on them. Thorax: Patient has a left-sided Port-A-Cath in place. LAB AND X-RAY: The patient's CBC today showed a white count of 9210, hemoglobin 8.8, and platelet count 67,000. Creatinine is 1.1. GFR is greater than 60. Blood gases show a pH of 7.49, a PO2 of 101 and a pCO2 of 42. ASSESSMENT AND PLAN: The patient has pneumonia, bacteremia, leg cellulitis and oral mucositis. My plan is to continue with his current antibiotics. COMORBIDITIES: Include lymphoma, chemotherapy and gastroesophageal reflux disease. cc: Bon Ochoa MD
[2017-04-12] MEDS: HYDROCODONE/APAP 7.5-325/15 ML PO PRN (19:50)
[2017-04-13 04:25] LABS: ALLEN TEST YES; BE 8.5 mmoll (-3.0-3.0); BLOOD TYPE ARTERIAL; DRAW SITE L RADIAL; METHB 0.7 % (0.0-1.5); O2(CT) 16.1 mL/dL (15.0-23.0); PCO2(98.6) 43 mmHg (35-45); PO2(98.6) 82 mmHg (60-100); SAMPLE BLOOD; SAO2 98.3 % (95.0-100.0); SRATE 12 BPM; THB 11.9 g/dL (11.5-17.4); TVOL 500 mL; pH(98.6) 7.49 (7.35-7.45)
[2017-04-13 04:26] LABS: MODALITY VENTILATOR
[2017-04-13 05:20] LABS: AGAP 7; BASO% 0.4 % (0.0-0.8); BUN 33 mg/dL (8-22); CALCIUM 7.3 mg/dL (8.8-10.2); CHLORIDE 107 mmol/L (98-107); COSMO 294; EOS# 0.08 X1000 (0.0-0.7); EOS% 1.6 % (0.0-10.0); HEMATOCRIT 29.2 % (42.0-52.0); HEMOGLOBIN 8.9 g/dL (14.0-18.0); IMM GRAN# 0.26 X1000 (0.0-0.04); IMM GRAN% 5.1 % (0.0-0.5); LYMPH# 0.33 X1000 (1.2-3.4); LYMPH% 6.5 % (20.5-51.1); MANUAL DIFF NEEDED? YES; MCH 29.4 PG (27-31); MCHC 30.5 g/dL (33-37); MCV 96.4 FL (81-99); MONO# 0.71 X1000 (0.11-0.59); MPV 10.9 FL (7.4-10.4); NEUT% 72.4 % (42.2-75.2); PLT 81 X1000 (130-400); POTASSIUM 3.6 mmol/L (3.5-5.1); RBC 3.03 XMIL (4.7-6.1); SODIUM 144 mmol/L (136-145); TCO2 30 mmol/L (25-35)
[2017-04-13 05:28] LABS: EOS 2 % (1-10); LYMPHS 5 % (21-51); MONO 3 % (1-9); NRBC 3 % (0-0)
[2017-04-13] MEDS: MERREM 1 GM in NS 50 ML IV SCH ×2 (06:17→14:32)
[2017-04-13] MEDS: PRILOSEC PO SCH (07:17)
--- NOTE | 2017-04-13 07:23 | Diag Imaging Result Doc PS360 ---
EXAM: CHEST-PORTABLE HISTORY: dyspnea TECHNIQUE: Erect AP portable at 0535 COMMENT: There is an endotracheal tube with its tip approximately 3 cm above the devyn and an NG tube which passes into the distal stomach. There is pleural thickening versus loculated effusion on the right. There is hazy opacity over the cardiac apex presumably in the lingula and the in the lateral right upper lung. The latter has improved somewhat since the previous examination of 04/11/2017. IMPRESSION: Slightly improved right-sided pneumonia. The possibility of pulmonary edema cannot be excluded. Electronically signed by Preet Canseco 04/13/2017 7:21 AM
[2017-04-13] MEDS: TOPROL XL PO SCH (08:51)
[2017-04-13] MEDS: WELLBUTRIN SR PO SCH (08:51)
[2017-04-13] MEDS: COLACE PO SCH (08:51)
[2017-04-13] MEDS: NON-FORMULARY BULK MED PO SCH ×3 (08:52→18:10)
[2017-04-13] MEDS: ASPIRIN PO SCH (08:52)
[2017-04-13] MEDS: FOLIC ACID PO SCH (08:52)
--- NOTE | 2017-04-13 11:20 | EEG REPORT ---
DATE: 04/12/2017 EEG #: [id number]. COMMENT: This is a digitally recorded EEG done portably in the ICU on an 86-year-old patient with reported unresponsiveness and question of anoxic encephalopathy. FINDINGS: The record is monotonous ,composed of low to medium amplitude delta symmetrically across the hemispheres. There was no reaction to photic stimulation or other stimulation. There was no spontaneous variation to correlate with drowsing or sleep. No definite epileptiform discharge was identified. INTERPRETATION: Abnormal EEG because of generalized slowing. CORRELATION: This is indicative of a diffuse encephalopathy and is nonspecific, but would correlate with recent anoxic brain injury. cc: MD Pennie Mejia III, MD
--- NOTE | 2017-04-13 11:42 | PROGRESS NOTE ---
DATE: 04/13/2017 SUBJECTIVE: Today Mr. Zambrano continues to be intubated. There is a sister at the bedside at the time of the interview. OBJECTIVE: Vital signs: Blood pressure is 107/64, pulse is 93, respirations, temperature 99.4 degrees. General: Mr. Zambrano is an 86-year-old male. He is intubated. HEENT: Mucosa is pink and moist. Anicteric. Acyanotic. Neck: Supple. Chest: Air entry is bilaterally reduced. There are some bibasilar crepitations. Cardiovascular: Regular rate and rhythm. Abdomen: Soft, nontender. Extremities: No pedal edema. 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 Will move lower extremities to painful stimulation. Has adequate gag reflex. Will barely open his eyes to his name as well. LABORATORY DATA: WBC is 5.07, hemoglobin is 8.9, platelet count is up to 81. There are no bands on peripheral smear. Chemistry is reviewed, completely unremarkable. CURRENT MEDICATIONS: Include meropenem at 1 g q.8 this was started on . Today is day 6 on that. Vancomycin per pharmacy protocol was started on the as well. Today is day 6. PPI high, furosemide 60 mg IV q.24. I'S AND O'S: Urine output 1045 for a negative balance of 355. The patient has a total positive balance of 2995. IMAGING: Chest x-ray this morning slightly improved right-sided pneumonia. Possibility of pulmonary edema cannot be excluded. ASSESSMENT: 1. S/P cardiac arrest. 2. Sepsis. Secondary to right lower lobe pneumonia. 3. Staphylococcus epidermidis bacteremia. 4. Staphylococcus epidermidis left leg cellulitis. Improved. 5. History of angioedema immunoblastic lymphoma (T-cell). Patient follows up with Dr. Wade. 6. Altered mental status likely secondary Anoxic brain injury. 7. Pulmonary edema secondary to diastolic dysfunction. PLAN: So in general, I think Mr. Zambrano continues to be stable but critical. He is still intubated. We will continue with the current antibiotics and diuretic regimen. Patient has been evaluated yesterday by neurology. We are pending their recommendations. cc: Adriel Villarreal MD Addendum: I had a conversation with the family members(3), this evening at about 5:00pm. I explained to them the findings on the EEG and the fact the patient will probably continue to be Vent dependent and vegetable. He has not shown and neurological recovery after the cardiac arrest. Family will make a decision to terminally extubate today. ELIAS
--- NOTE | 2017-04-13 14:08 | CONSULTATION ---
DATE OF CONSULTATION: 04/13/2017 Mr. Zambrano is 86 years old, and he had cardiopulmonary arrest a few days ago, resuscitated, intubated, never regained consciousness. He has not been hypothermic. Baseline status is that he had some forgetfulness according to his sister but that was not prominent. There is not history of previous serious brain event. There is past history of ischemic heart disease, hypertension, atrial fibrillation, dyslipidemia, pneumonia, CLL with lymphoma. Workup includes noncontrast CT of the head two days ago reported to show usual changes but nothing focal, no bleeding. Lab work shows some abnormalities but nothing that generally would explain coma. He was admitted with left leg cellulitis 6 days ago. EEG yesterday shows marked slowing with some amplitude suppression. On exam, Mr. Zambrano is intubated, unresponsive. There is minimal pupil reaction to bright light. Corneal reflex is minimal bilaterally. I did not see definite lateral eye movement with passive head turning on the right, but there is incomplete medial movement of the left eye with head turning. There is brisk withdrawal with noxious stimulation of the limbs. Plantar response is briskly extensor bilaterally. When positioned with legs extended, he spontaneously demonstrates triple flexion with the left leg more than the right. IMPRESSION: Documented bradycardia and likely anoxic/ischemic brain injury. The EEG is typical of anoxic brain injury. His clinical course suggest this will not be irreversible. In light of his age and baseline medical problems, I think it would be reasonable to consider withdrawing support, and I made that suggestion to attentive sister at the bedside. I do not have any other suggestion from neurologic standpoint. Thanks for asking me to see Mr. Zambrano. cc: MD ELIAS Mejia III
[2017-04-13] MEDS: LASIX IV SCH (15:04)
[2017-04-13] MEDS ORDERED: MORPHINE ONE (18:03)
[2017-04-13] MEDS: VANCOMYCIN 1,500 MG in NS 250 ML IV SCH (18:10)
[2017-04-13] MEDS ORDERED: MORPHINE IV PRN (18:21)
[2017-04-13 19:53] VITALS: BP 100/51
--- NOTE | 2017-04-15 09:07 | DISCHARGE SUMMARY ---
ADMISSION DATE: 04/07/2017 DISCHARGE DATE: 04/13/2017 The patient on 04/13/2017 at 2037. CONSULTATIONS: 1. Dr. Austin Daniel with Neurology. 2. Dr. Bon Ochoa with Infectious Disease. 3. Dr. Pennie Pérez with Pulmonology. 4. Dr. Maria Alejandra Wade with Hematology/Oncology. PERTINENT PROCEDURES: 1. Chest CT showed worsening in the diffuse bilateral infiltrates, worsening pleural effusion, probably nondisplaced right-sided rib fractures. 2. Head CT showed no acute disease. 3. EEG indicative of diffuse encephalopathy that is nonspecific, but correlates with recent anoxic brain injury. DISCHARGE DIAGNOSES: 1. Status post cardiac arrest. The patient on 04/13/2017. 2. Sepsis secondary to right lower lobe pneumonia. 3. Staphylococcus epidermidis bacteremia. 4. Staphylococci epidermidis left leg cellulitis, improved. 5. History of angioedema aminoblastic lymphoma, T-cell, followed by Dr. Wade. 6. Altered mental status secondary to anoxic brain injury. 7. Pulmonary edema secondary to diastolic dysfunction. HOSPITAL COURSE: Mr. Zambrano is an 86-year-old, male, who carries a past medical history of coronary artery disease, atrial fibrillation. Not a candidate for anticoagulation therapy secondary to recurrent thrombocytopenia, hypertension, BPH, prior CVA, anxiety, reflux, hyperlipidemia. Prior hospitalization for pneumonia, myoblastic syndrome with lymphomatous transformation. He recently got chemotherapy for his mouth. It was very sore from mucus sinus. Left leg was very irritated which look like diffuse cellulitis irritation. 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 He had a very stormy course of chemotherapy by his report. His chemotherapy was very limited by his thrombocytopenia. He had very intense cellulitis on his right leg requiring 2 skin grafts. He presented to the ED now with mucositis cellulitis of the leg as well as neutropenia. He was started on IV antibiotics and Magic Mouth Wash. for gram-positive organisms and gram negative for his neutropenia. Hematology was consulted. Dr. Bon Ochoa with Infectious Disease was consulted. On 04/11/2017 around 0045, the patient went into cardiac arrest on the floor. ACLS protocols were performed and the patient was moved to the ICU. He had a normal head CT. He did undergo an EEG by Dr. Daniel that showed an anoxic brain injury. His clinical course did suggest that this would not be reversible. Dr. Daniel was brought on board who also relayed this to the mainly, and he felt giving his age and based on medical problems, that it would be reasonable for the family to consider withdrawing support, and he also made that suggestion to the family. They did make the patient DNR LEVEL 1 on 04/13/2017 and they terminally extubated at 181. He was given p.r.n. morphine per orders, and the patient was pronounced at 2036. Dictated by STEVE Neri for Adriel Villarreal MD cc: MD Chema Wong MD
== END 2017-04-13 20:37 | disposition expired ==
LOC: SUATTDRO 09:49 → DIRADM 09:49 → 3N 10:35 → ICU 04-11 00:04
PROVIDERS: ATTEND Internal Medicine